=== PATIENT | male | born 1980 | race Caucasian/White ===

== ENCOUNTER → 2017-11-04 20:16 | Outpatient (CLI) | payer OTHER, SELFPAY | PROVIDERS: Family Provider Internal Medicine; PCP Internal Medicine; Visit Provider Nurse Practitioner Family | DX: G47.10 Hypersomnia, unspecified (principal); R06.83 Snoring | CPT/HCPCS: 95810 ==

== ENCOUNTER → 2017-12-09 22:45 | Outpatient (CLI) | payer OTHER, SELFPAY | PROVIDERS: Family Provider Internal Medicine; PCP Internal Medicine; Visit Provider Nurse Practitioner Family | DX: G47.33 Obstructive sleep apnea (adult) (pediatric) (principal) | CPT/HCPCS: 95811 ==

== ENCOUNTER → 2018-05-11 08:24 | Outpatient (CLI) | payer OTHER, SELFPAY ==
[2018-05-11 11:48] LABS: AST(SGOT) 32 U/L (15-37); Alanine Aminotransfer ALT/SGPT 66 U/L (16-61); Alkaline Phosphatase 72 U/L (45-117); Anion Gap 7 (5-15); BUN 10 mg/dL (7-18); BUN/Creat Ratio 11.5 RATIO (10-20); Bilirubin, Direct 0.15 mg/dL (0.00-0.30); Calcium,Total 8.6 mg/dL (8.5-10.1); Chloride 104 mmol/L (98-107); Cholesterol 179 mg/dL (200); Creatinine, Serum 0.87 mg/dL (0.70-1.30); EST Glomerular Filtration Rate 104 mL/min (>60); Est Glom Filt Rate - Afr Amer 126 mL/min (>60); Globulin 3.9 g/dL (2.2-4.2); Glucose 77 mg/dL (74-106); High Density Lipoprotein 38 mg/dL; Potassium 4.1 mmol/L (3.5-5.1); Protein, Total 7.9 g/dL (6.4-8.2); Sodium Level 138 mmol/L (136-145); Triglycerides 133 mg/dL; Very Low Density Lipoprotein 27 mg/dL (5-40)
[2018-05-11 14:03] LABS: Absolute Lymphocyte Count 2.06 X10^3/ul (0.83-4.51); Absolute Neutrophil Count 1.5 X10^3/uL (2.0-7.7); Basophil# 0.01 X10^3/uL; Basophil% 0.2 % (0-1); Eosinophil# 0.06 X10^3/uL; Eosinophils% 1.5 % (0-5); Hematocrit 45.1 % (40-54); Lymphocyte # 2.06 X10^3/ul (4.0); Lymphocyte % 50.9 % (19-41); Mean Corp Hgb Conc 35.5 g/gl (32-36); Mean Corpuscular Hgb 32.2 pg (27.0-32.0); Mean Corpuscular Volume 90.7 fL (80-94); Mean Platelet Vol. 11.2 fl (6.2-12.0); Monocyte% 9.9 % (0-10); Neutrophil # 1.52 X10^3/uL (2.7-7.7); Neutrophil % 37.5 % (47-70); POSITIVE COUNT NO; POSITIVE DIFFERENTIAL NO; POSITIVE MORPHOLOGY NO; Platelet Count 178 K/mm3 (150-450); RBC Distribution Width SD 42.4 fl (35.1-43.9); Red Blood Count 4.97 M/mm3 (4.6-6.2); White Blood Count 4.1 K/mm3 (4.4-11.0)
== END ==
PROVIDERS: Family Provider Internal Medicine; PCP Internal Medicine; Visit Provider Physician Assistant
DX: L70.0 Acne vulgaris (principal); L23.7 Allergic contact dermatitis due to plants, except food; Z79.899 Other long term (current) drug therapy
CPT/HCPCS: 36415; 80053; 80061; 82248; 85025

== ENCOUNTER → 2020-05-27 08:25 | Outpatient (CLI) | payer OTHER, SELFPAY ==
[2020-05-13 16:45] VITALS: BMI 28.8
[2020-05-27 09:39] LABS: Thyroid Stim Hormone (TSH) 1.78 uIU/mL (0.358-3.74)
== END ==
PROVIDERS: PCP Internal Medicine; Referring Provider Nurse Practitioner Family; Visit Provider Nurse Practitioner Family
DX: Z00.00 Encounter for general adult medical examination without abnormal findings (principal)
CPT/HCPCS: 36415; 84443

== ENCOUNTER 2020-07-03 16:30 | Outpatient (RCR) | payer OTHER, SELFPAY ==
[2020-05-13 16:45] VITALS: BMI 28.8
--- NOTE | 2020-06-06 08:53 | HP.PTEVAL_ITS ---
Patient's Visit Information SUZANNA MCKNIGHT is a 39 year old M referred to Physical Therapy by Anurag Whittaker NP-C with a diagnosis of SPINAL STENOSIS,CERVICAL. Date of Evaluation: 06/06/20 Physical Therapist: Daniel Johnson, PT, Cert MDT, OCS - Visit Plan Frequency: 2x /Week Duration: 4 Weeks Plan: PT INTERVENTIONS CERVICAL MANUAL TRACTION TRACTION /MOBILIZATION UPPER SPINE,CERVOCAL /POSTURAL STRENGTHNEING,MARCO EX'S,AND MODALTIES NEEDED - Subjective This 39 y/o male presents to physical therapy with cervical spinal stenosis. Patient has had cervical pain since 2014 and radicular symptoms. Patient had PT in past showed stenosis ,disc issues. Patient had h/o seeing spine surgery 2014. Patient most recently noticed more pain walking around by 2:00pm and sitting extended. There was on incidant hiking on tough terrain noticed syptoms worse. Patient located cervical base of occiputal spine and radiates to left arm. MACHADO located base of occiptal. Denies parathesia/tingling. Denies nausea/tinntus. Patient sleeping okay at night. Aggraveting factors extended physical activity ,walking,sitting.. graddually worse. Symptoms beter with laying supine and laying down,cervical retraction. Symptoms affects ADL's and houswork tasks. Pa tient affects QOL. Worse / lucia MACHADO.Patient was provided with muscle realaxer. SOCIAL: . 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 PALAPTION: tender occiput right [place]. NEURO: intact ,denies parathesia/tingling reflexes L3-4,L4-5,L5-S1 2/3. AROM: BUE WFL. CERVICAL AROM: flexion WFL,extension WFL,extension min loss,rotations min loss. MMT: BUE 4/5. 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 UPPER CERVICAL SPINE: MOD TIGHT - Special Tests C/S Radiculapathy - Left Upper limb tension test: Negative C/S Radiculapathy - Right Upper limb tension test: Negative C/S Radiculapathy - Left Spurlings: Negative C/S Radiculapathy - Right Spurlings: Negative C/S Radiculapathy - Left Cervical distraction: Negative C/S Radiculapathy - Right Cervical distraction: Negative Cervical Sitting: Protrusion - Mechanical Response: No effect Cervical Sitting: Protrusion - Symptoms During Testing: No effect Cervical Sitting: Protrusion - Symptoms After Testing: No effect Cervical Sitting: Retraction - Mechanical Response: No effect Cervical Sitting: Retraction - Symptoms During Testing: No effect Cervical Sitting: Retraction - Symptoms After Testing: No effect Cervical Sitting: Retraction-Extension - Mechanical Response: No effect Cerv Sitting: Retraction-Extension - Symptoms During Testing: No effect Cerv Sitting: Retraction-Extension - Symptoms After Testing: No effect - Goals Goal 1:: I with HEP Goal Time Frame: 4-6 Weeks Goal 2:: Improve posture for ADL'S/JOB DEMNANDS Goal Time Frame: 4-6 Weeks Goal 3:: Patient decrease cervical pain and MACHADO and radicular symptoms by 60% or > to improve functin with job demnads Goal Time Frame: 4-6 Weeks Goal 4:: Patient improve neck owestry score by 5 points or > to improve QOL. Goal Time Frame: 4-6 Weeks Goal 5:: Patient to improve cervical ROM upper cervical spine for function of recovery. Goal Time Frame: 4-6 Weeks - Rehabilitation Potential Physical Therapy Diagnosis: This patient has cervical pain with right occiputal dysfunction and derrangement above elbow with h/o spinal stenosis and disc issue with MACHADO and pain worse with job sitting and standing extended thus benifit from skilled PT. Rehabilitation Potential: Good - Anticipated Interventions Patient/Client Instruction: Educate patient on: Condition, Plan of Care For the Purpose of:: To decrease pain, To increase ROM, To improve muscle performance and motor function, To improve ability to perform ADL's, To increase tolerance to activity/condition/position, To improve ability of physical actions for home/community/work/leisure, To improve gait and locomotor functions, To decrease soft tissue restriction, To increase flexibility/ROM, To improve ability to perform tasks related to life management Therapeutic Exercise to Include: Strength training, Postural training, Flexibilty training, Active ROM, Marco Exercises For the Purpose of:: To decrease pain, To decrease swelling/inflammation, To imp rove muscle performance and motor function, To improve ability to perform ADL's, To increase tolerance to activity/condition/position, To improve performance and independence with ADL's, To improve ability of physical actions for home/community/work/leisure, To improve health of tissue, To decrease soft tissue restriction, To increase flexibility/ROM, To improve ability to perform tasks related to life management Manual Therapy Techniques to Include: Mobilization Comment: CERVICAL TRACTION,UPPER C-SPINE For the Purpose of:: To decrease pain, To increase ROM, To improve muscle performance and motor function, To improve ability to perform ADL's, To increase tolerance to activity/condition/position, To improve ability of physical actions for home/community/work/leisure, To improve health of tissue, To decrease soft tissue restriction, To increase flexibility/ROM, To improve ability to perform tasks related to life management TENS: Yes IF ES: Yes Cryotherapy (ice pack, ice massage): Yes Thermo therapy (hot pack): Yes Ultrasound (thermal/non thermal): Yes For the Purpose of:: To decrease pain, To increase ROM, To improve health of tissue, To decrease soft tissue restriction Thank you for the opportunity to evaluate your patient. For Medicare and Medicare HMO plans, please review the plan of care and approve it. It will need to be FAXED BACK to us at [phone] for Medicare purposes. For Medicare only, by signing this I certify the plan of care. Please let me know if there are questions or concerns regarding this plan of c are. Physician Signature: Date:
--- NOTE | 2020-10-01 13:08 | HP.PT.NRP ---
SUZANNA MCKNIGHT was seen in my office for initial evaluation on 06/06/20. The following Plan of Care was established for this patient: Initial Frequency: 2x /Week Initial Duration: 4 Weeks Patient/Client Instruction: Educate patient on: Condition, Plan of Care For the Purpose of:: To decrease pain, To increase ROM, To improve muscle performance and motor function, To improve ability to perform ADL's, To increase tolerance to activity/condition/position, To improve ability of physical actions for home/community/work/leisure, To improve gait and locomotor functions, To decrease soft tissue restriction, To increase flexibility/ROM, To improve ability to perform tasks related to life management Therapeutic Exercise to Include: Strength training, Postural training, Flexibilty training, Active ROM, Kareem Exercises For the Purpose of:: To decrease pain, To decrease swelling/inflammation, To improve muscle performance and motor function, To improve ability to perform ADL's, To increase tolerance to activity/condition/position, To improve performance and independence with ADL's, To improve ability of physical actions for home/community/work/leisure, To improve health of tissue, To decrease soft tissue restriction, To increase flexibility/ROM, To improve ability to perform tasks related to life management Manual Therapy Techniques to Include: Mobilization Comment: CERVICAL TRACTION,UPPER C-SPINE For the Purpose of:: To decrease pain, To increase ROM, To improve muscle performance and motor function, To improve ability to perform ADL's, To increase tolerance to activity/condition/position, To improve ability of physical actions for home/community/work/leisure, To improve health of tissue, To decrease soft tissue restriction, To increase flexibility/ROM, To improve ability to perform tasks related to life management TENS: Yes IF ES: Yes Cryotherapy (ice pack, ice massage): Yes Thermo therapy (hot pack): Yes Ultrasound (thermal/non thermal): Yes For the Purpose of:: To decrease pain, To increase ROM, To improve health of tissue, To decrease soft tissue restriction This patient was last seen in our office . Pertinent comments regarding their Physical therapy will appear below: Patient seen for PT for cervical pain and MACHADO focusing on US and cervical/postural ex's. At this point I will be discontinuing this patient from physical therapy. I would be happy to see this patient again in the future if found appropriate by the physician. Thank you! Daniel Johnson, PT, Cert MDT, OCS
== END 2020-07-03 19:00 | disposition home or self-care (01) ==
LOC: PT 16:30
PROVIDERS: PCP Internal Medicine; Visit Provider Nurse Practitioner Family
DX: M48.02 Spinal stenosis, cervical region (principal)
CPT/HCPCS: 97035; 97110; 97140; 97162

== ENCOUNTER → 2021-07-06 07:55 | Outpatient (CLI) | payer OTHER, SELFPAY ==
[2021-07-06 08:52] LABS: PSA,Total - Annual Screen 0.79 ng/mL (0.00-4.00); Thyroid Stim Hormone (TSH) 1.17 uIU/mL (0.358-3.74)
== END ==
PROVIDERS: PCP Internal Medicine; Referring Provider Nurse Practitioner Family; Visit Provider Nurse Practitioner Family
DX: Z12.5 Encounter for screening for malignant neoplasm of prostate (principal); I10 Essential (primary) hypertension
CPT/HCPCS: 36415; 84153; 84443; G0103

== ENCOUNTER → 2021-08-28 13:36 | Outpatient (CLI) | payer OTHER, SELFPAY ==
[2021-08-28 15:07] LABS: Absolute Neutrophil Count 3.9 X10^3/uL (2.0-7.7); Basophil# 0.02 X10^3/uL; Basophil% 0.4 % (0-1); Eosinophil# 0.01 X10^3/uL; Eosinophils% 0.2 % (0-5); Hematocrit 43.7 % (40-54); Hemoglobin 15.9 g/dL (13.0-16.5); Lymphocyte % 20.9 % (19-41); Mean Corp Hgb Conc 36.4 g/dL (32-36); Mean Corpuscular Hgb 32.1 pg (27.0-32.0); Mean Corpuscular Volume 88.3 fL (80-94); Mean Platelet Vol. 10.8 fl (6.2-12.0); Monocyte# 0.22 X10^3/uL; Monocyte% 4.2 % (0-10); NRBC Flagged by Analyzer 0 % (0-5); Neutrophil # 3.91 X10^3/uL (2.7-7.7); Neutrophil % 74.1 % (47-70); Platelet Count 191 K/mm3 (150-450); RBC Distribution Width CV 12.2 % (11.6-14.6); RBC Distribution Width SD 39.5 fl (35.1-43.9); Red Blood Count 4.95 M/mm3 (4.6-6.2); White Blood Count 5.3 K/mm3 (4.4-11.0)
[2021-08-28 15:21] LABS: ALB/GLOB Ratio 1.2 RATIO (0.9-2.4); AST(SGOT) 18 U/L (15-37); Alanine Aminotransfer ALT/SGPT 41 U/L (16-61); Albumin, Serum 4.3 g/dL (3.2-5.0); Alkaline Phosphatase 75 U/L (45-117); Anion Gap 6 (5-15); BUN 8 mg/dL (7-18); BUN/Creat Ratio 8.8 RATIO (10-20); Calcium,Total 9.3 mg/dL (8.5-10.1); Chloride 104 mmol/L (98-107); EST Glomerular Filtration Rate 98 mL/min (>60); Est Glom Filt Rate - Afr Amer 118 mL/min (>60); Globulin 3.7 g/dL (2.2-4.2); Glucose 123 mg/dL (74-106); Sodium Level 138 mmol/L (136-145)
[2021-08-28 17:44] LABS: Protein, Urine (Random) 13.5 mg/dL (<11.9); Protein:Creat Ratio 66 mg/g CRE (0-200)
== END ==
PROVIDERS: PCP Internal Medicine; Referring Provider Physician Assistant; Visit Provider Physician Assistant
DX: I10 Essential (primary) hypertension (principal)
CPT/HCPCS: 36415; 80053; 82570; 84156; 85025

== ENCOUNTER → 2021-09-02 13:34 | Outpatient (CLI) | payer OTHER, SELFPAY ==
--- NOTE | 2021-09-02 13:36 | ECHOD_ITS ---
Reason For Study: HTN Procedure This was a 2D Doppler, Color Flow transthoracic echocardiogram. The exam was of adequate technical quality. Exam performed in department. Left Ventricle Normal LV size. Apical false tendon noted. Left ventricular systolic function is normal. The estimated ejection fraction is 55 %. No evidence for diastolic dysfunction. No regional wall motion abnormalities noted. Right Ventricle Normal RV size. Normal systolic function. Atria Normal left atrium. Normal right atrium. No doppler evidence for ASD. Mitral Valve There is no mitral annular calcification. Normal mitral valve. Trivial mitral valve insufficiency. Tricuspid Valve Normal tricuspid valve. Mild tricuspid valve insufficiency. Right ventricular systolic pressure estimated to be 21 mmHg. Aortic Valve Trisinus/trileaflet aortic valve. Normal aortic valve. Pulmonic Valve The pulmonic valve is not well visualized. Trivial pulmonic valve insufficiency. Great Vessels The aortic root is not well visualized. Pericardium/Pleural No pericardial effusion. MMode/2D Measurements & Calculations LVIDd: 4.5 cm IVSd: 1.2 cm LA dimension: 3.6 cm LVIDs: 2.5 cm LVPWd: 1.1 cm RVDd: 4.2 cm FS: 44.0 % LAV(MOD-bp): 42.4 ml LA A4 area: 16.7 cm2 RA A4 area: 20.9 cm2 LAV(MOD-bp) Indexed: 20.7 ml/m2 LAV(MOD-sp2): 41.2 ml LAV(MOD-sp4): 43.3 ml Time Measurements MV dec time: 0.22 sec Doppler Measurements & Calculations MV E max joseph: 88.3 cm/sec Lat Peak E' Joseph: 15.8 cm/sec Med Peak E' Joseph: 10.6 cm/sec MV A max joseph: 57.4 cm/sec E/E' lat: 5.6 E/E' med: 8.3 MV E/A: 1.5 MV V2 max: 106.6 cm/sec MV P1/2t max joseph: 106.6 cm/sec Ao V2 max: 116.9 cm/sec MV max P.5 mmHg MV P1/2t: 73.5 msec Ao max P.5 mmHg MV V2 mean: 51.4 cm/sec MV dec slope: 424.5 cm/sec2 MV mean P.3 mmHg MVA(P1/2t): 3.0 cm2 MV V2 VTI: 26.6 cm LV V1 max: 104.6 cm/sec PA V2 max: 85.7 cm/sec TR max joseph: 209.2 cm/sec LV V1 max P.4 mmHg TR max P.5 mmHg ECHO/Echo Complete Interpretation Summary Left ventricular systolic function is normal. The estimated ejection fraction is 55 %. Apical false tendon noted. Trivial mitral valve insufficiency. Mild tricuspid valve insufficiency. Trivial pulmonic valve insufficiency. Right ventricular systolic pressure estimated to be 21 mmHg. No evidence for diastolic dysfunction. Ordering Physician: Rhonda Ayala Referring Physician: Rhonda Ayala Performed By: Logan Erazo RCS
== END ==
PROVIDERS: PCP Internal Medicine; Referring Provider Physician Assistant; Visit Provider Physician Assistant
DX: I10 Essential (primary) hypertension (principal)
CPT/HCPCS: 93306

== ENCOUNTER 2021-10-13 06:15 | Outpatient (CLI) | payer OTHER, SELFPAY ==
--- NOTE | 2021-10-13 08:12 | STRESSREP_ITS ---
Stress Test Report Date: 10-13-2021 Procedure: Exercise tolerance test/imaging study Indications: Chest pain Consent: Per the patient Procedure: The patient exercised on a Pedro Luis protocol for 10 minutes completing Stage III and 1 minute of Stage IV achieving a peak heart rate of 166 bpm (93% predicted maximal heart rate) with a peak blood pressure 162/70 mmHg and a peak MET capacity of 13 METs. The baseline ECG demonstrated normal sinus rhythm. The peak exercise ECG demonstrated somatic/motion artifact with no obvious ECG changes. There was a rare PVC during exercise. The functional capacity was considered good. There was no complaint of chest discomfort during exercise or recovery. The examination was discontinued secondary to leg. Impression: 1. Technically adequate (percent predicted maximal heart rate greater than 85%) exercise tolerance test 2. Peak exercise ECG with somatic/motion artifact with no obvious ECG changes 3. There was a rare PVC during exercise 4. Nuclear images pending Myocardial perfusion imaging study: Technique: The patient was injected with 11.9 mCi of technetium 99m Cardiolite and subsequently rest SPECT Cardiolite nuclear imaging was obtained in the horizontal long, vertical long, and short axis views. The patient exercised on a Pedro Luis protocol for 10 minutes completing Stage III and 1 minute of Stage IV achieving a peak heart rate of 166 bpm (93% predicted maximal heart rate) with a peak blood pressure 162/70 mmHg and a peak MET capacity of 13 METs. The patient was injected with 34.2 mCi of technetium 99m Cardiolite and subsequently stress SPECT Cardiolite nuclear imaging was obtained in the horizontal long, vertical long, and short axis views. A gated Cardiolite study at peak stress was obtained. Interpretation: Rest and stress SPECT Cardiolite nuclear imaging status post realignment, normalization, and attenuation correction, demonstrates relative uniform tracer uptake and myocardial perfusion appearing within normal limits. There is end systolic thickening and brightening. The gated Cardiolite study demonstrates myocardial thickening and inward wall motion. The reported LVEF is 67%. Impression: 1. Rest and stress SPECT Cardiolite nuclear imaging demonstrate relative uniform tracer uptake and myocardial perfusion appearing within normal limits. 2. The gated Cardiolite study reports an LVEF of 67%. This note was generated with [employer] software. It may contain incorrect words, spelling, and punctuation that were not noted in checking the note before signing.
== END 2021-10-13 23:59 | disposition short-term general hospital (02) ==
LOC: CVS 06:16
PROVIDERS: PCP Internal Medicine; Referring Provider Nurse Practitioner Family; Visit Provider Nurse Practitioner Family
DX: R07.9 Chest pain, unspecified (principal)
CPT/HCPCS: 78452; 93017; A9500; A4216

== ENCOUNTER 2022-02-25 09:18 | Emergency (ER) | payer OTHER, SELFPAY ==
[2022-02-25 09:19] VITALS: BP 148/97; PULSE 84; RESP 14; TEMP 36.4; O2SAT 98; BMI 26.6
--- NOTE | 2022-02-25 09:30 | CT_ITS ---
STUDY: CT ABDOMEN AND PELVIS WITHOUT CONTRAST REASON FOR EXAM: Male, 41 years old. Right lower quadrant pain. RADIATION DOSAGE (If Supplied By Facility): CTDIvol = ( 8.45 ) mGy, DLP = ( 430.88 ) mGycm TECHNIQUE: Transaxial images were obtained from the dome of the diaphragm to the symphysis pubis without oral contrast, and without intravenous contrast. Sagittal and coronal images were reconstructed. Individualized dose optimization techniques were used for this CT. COMPARISON: None. FINDINGS: The visualized lung bases are unremarkable. The visualized portions of the heart are within normal limits. Normal liver. Normal gallbladder and extrahepatic biliary system. Borderline splenomegaly. Normal pancreas. Normal bilateral adrenal glands. Mild degree of right hydronephrosis and right hydroureter. There is a 1.5 mm calculus at the base of the bladder on the left side suggestive of a recently passed right ureteral calculus. Normal left kidney. There is a small hiatal hernia. Normal small intestine. Moderate amount of fecal material is seen in the colon. The appendix is visualized and appears normal. Normal abdominal aorta. Normal inferior vena cava. There is borderline retroperitoneal lymphadenopathy with enlarged nodes no greater than 10mm in the short axis diameter. Normal urinary bladder. Normal abdominal wall. Normal osseous structures. CT/Abdomen/Pelvis without Cont IMPRESSION: Findings suggestive of recent passage of a 1.5 mm calculus from the right ureter with resultant mild degree of right hydronephrosis and right hydroureter. Electronically Signed: Forest South MD at 10:26 EDT ,
--- NOTE | 2022-02-25 09:36 | EX.ED.DYSGE1 ---
HPI History of Present Illness Chief Complaint: Abd Pain Informant: patient Narrative Narrative: Patient started with pain toward the right lower quadrant right side about 45 minutes ago. He states it started pretty suddenly. When he stands up it sharp but when he lays down its more aching. It started with a sensation that he had to urinate. He went to urinate but did not have to but then the pain started. No blood in the urine. No fevers chills. When the pain was bad he was nauseated but no longer. The pain is still there but it is less. He has never had kidney stone. He felt perfectly fine before this started. Nothing specifically makes it better or worse. PFSH PFSH Medical History Back pain Chest pain Difficulty balancing Encounter for preventative adult health care examination Herniated disc Hypertension Seasonal allergies Home Medications montelukast 10 mg tablet 10 mg PO QPM #90 tab 05/29/21 [Rx Last Taken Unknown] naproxen 500 mg PO BID #14 tab 02/25/22 [Rx Last Taken Unknown] ondansetron 4 mg PO Q8H PRN #10 tab 02/25/22 [Rx Last Taken Unknown] oxycodone-acetaminophen [Percocet] 1 tab PO Q6H PRN 3 Days #10 tab 02/25/22 [Rx Last Taken Unknown] Allergy/AdvReac Type Severity Reaction Status Date / Time No Known Allergies Allergy Verified 02/25/22 09:20 Family History Mother Breast cancer Father Cancer prostate Grandfather Colon cancer Surgical History H/O wisdom tooth extraction Social History Smoking Status: Never smoker how long ago did patient quit smokin alcohol intake: current alcohol intake frequency: a few times a week Alcohol type: beer substance use type: does not use what type of physical activity do you participate in: none ROS ROS ED Constitutional Constitutional ED: Denies chills or fever(s) ENT ENT ED: Denies rhinorrhea Cardiovascular Cardiovascular: Denies chest pain or palpitations Respiratory/Chest Respiratory/Chest: Denies cough or dyspnea Gastrointestinal Gastrointestinal: Reports abdominal pain; Denies nausea Genitourinary Genitourinary ED: Reports other Details: See history of present illness. ; Denies hematuria Musculoskeletal Musculoskeletal: Denies back pain or myalgias Integumentary Denies rash Psychiatric Psychiatric: Denies depression Endocrine Endocrinology: Denies polydipsia or polyuria Allergic/Immunologic Allergic/Immunologic ED: Denies urticaria EXAM Physical Exam Const Vital Signs: 02/25/22 09:19 Temperature 97.5 F L Temperature Source Temporal Pulse Rate 84 Respiratory Rate 14 Blood Pressure 148/97 H Blood Pressure Mean 114 Pulse Ox 98 Oxygen Delivery Method Room Air Positive well nourished and well developed General Appearance ED: well developed and NAD; Negative for cyanotic HEENT Reports moist mucous membranes Eyes General Eye ED: Negative for pale conjunctiva Neck No no JVD Resp normal respiratory effort Cardio regular rate GI normal to inspection, nondistended, normoactive bowel sounds; Negative for non-tender Palpation: soft Back/Spine no CVA tenderness Extremity normal to inspection Neuro oriented x3 Sensorium / Orientation: alert Psych mental status grossly normal Skin no rashes or lesions noted MDM MDM MDM Narrative Medical decision making narrative: Patient's CBC is normal. Electrolytes are unremarkable. Urine shows a few red cells but no white cells. CT is consistent with a stone that just passed. Patient's pain is better. He is feeling some come back off and on. I expect him to still have some discomfort from this. I will write him for nonsteroidals pain meds and Zofran. I will not use Flomax as it appears as the stone has passed and is quite small. Lab Data Attestation: I reviewed the patient's lab results. Labs: Laboratory Results - last 24 hr 02/25/22 02/25/22 02/25/22 09:33 09:33 10:55 WBC 5.0 RBC 5.09 Hgb 16.4 Hct 45.1 MCV 88.6 MCH 32.2 H MCHC 36.4 H RDW Std Deviation 39.4 RDW Coeff of [place] 12.1 Plt Count 185 MPV 10.4 Immature Gran % (Auto) 0.200 Neut % (Auto) 50.0 Lymph % (Auto) 39.4 [place] % (Auto) 8.6 Eos % (Auto) 1.4 Baso % (Auto) 0.4 Absolute Neuts (auto) 2.5 Absolute Lymphs (auto) 1.98 Nucleated RBC % 0 Sodium 138 Potassium 3.7 Chloride 105 Carbon Dioxide 27.0 Anion Gap 6 BUN 13 Creatinine 1.04 Estim Creat Clear Calc 95.54 Est GFR (MDRD) Af Amer 100 Est GFR (MDRD) Non-Af 83 BUN/Creatinine Ratio 12.5 Glucose 109 H Calcium 8.8 Urine Color Yellow Urine Clarity Sl. Cloudy Urine pH 6.0 Ur Specific [place] 1.025 Urine Protein 15 H Urine Glucose (UA) Normal Urine Ketones 5 H Urine Occult Blood 150 H Urine Nitrite Negative Urine Bilirubin Negative Urine Urobilinogen Normal Ur Leukocyte Esterase Negative Urine RBC 0-5 SEEN Urine WBC 0 SEEN Ur Squamous Epith Cells 0 SEEN Urine Bacteria 0 SEEN Urine Mucus 0 SEEN Radiography Diagnostic Testing: Clinical Impression(s) from Imaging Studies Abdomen/Pelvis CT 02/25/22 09:30 IMPRESSION: Findings suggestive of recent passage of a 1.5 mm calculus from the right ureter with resultant mild degree of right hydronephrosis and right hydroureter. Electronically Signed: Forest South MD at 10:26 EDT , Discharge Plan Triage Chief Complaint: Abd Pain ED Provider: Rylan Boone Dx/Rx/DC Orders Clinical Impression: Kidney stone on right side Instructions: ED Kidney Stone, Passed Prescriptions: New oxycodone-acetaminophen [Percocet] 5-325 mg tablet 1 tab PO Q6H PRN (Reason: pain) 3 Days Qty: 10 RF: 0 ondansetron 4 mg tablet,disintegrating 4 mg PO Q8H PRN (Reason: nausea and vomiting) Qty: 10 RF: 0 naproxen 500 MG tablet 500 mg PO BID Qty: 14 RF: 0 No Action montelukast [Singulair] 10 mg tablet 10 mg PO QPM Qty: 90 RF: 3 Primary Care Provider: Anurag Whittaker NP Referrals: Mychal Flanagan MD [STAFF PHYSICIAN] - 3-5 Days Anurag Whittaker NP, REMITTANCE CLERK-C [Primary Care Provider] - Disposition Disposition: Home, Self Care
[2022-02-25 09:41] LABS: Absolute Lymphocyte Count 1.98 X10^3/uL (0.83-4.51); Absolute Neutrophil Count 2.5 X10^3/uL (2.0-7.7); Basophil# 0.02 X10^3/uL; Basophil% 0.4 % (0-1); Eosinophil# 0.07 X10^3/uL; Eosinophils% 1.4 % (0-5); Hematocrit 45.1 % (40-54); Hemoglobin 16.4 g/dL (13.0-16.5); Lymphocyte # 1.98 X10^3/ul (0.83-4.51); Lymphocyte % 39.4 % (19-41); Mean Corp Hgb Conc 36.4 g/dL (32-36); Mean Corpuscular Hgb 32.2 pg (27.0-32.0); Mean Corpuscular Volume 88.6 fL (80-94); Mean Platelet Vol. 10.4 fl (6.2-12.0); Monocyte# 0.43 X10^3/uL; Monocyte% 8.6 % (0-10); NRBC Flagged by Analyzer 0 % (0-5); Neutrophil # 2.51 X10^3/uL (2.7-7.7); Platelet Count 185 K/mm3 (150-450); RBC Distribution Width CV 12.1 % (11.6-14.6); RBC Distribution Width SD 39.4 fl (35.1-43.9); Red Blood Count 5.09 M/mm3 (4.6-6.2)
[2022-02-25] MEDS: 0.9% Normal Saline 1,000 ML 1000 ML IV (09:47)
[2022-02-25] MEDS: Ondansetron 4 MG/2 ML Vial IV (09:47)
[2022-02-25] MEDS: Ketorolac 15 MG/ML Vial IV (09:47)
[2022-02-25 10:02] LABS: Anion Gap 6 (5-15); BUN 13 mg/dL (7-18); BUN/Creat Ratio 12.5 RATIO (10-20); Calcium,Total 8.8 mg/dL (8.5-10.1); Chloride 105 mmol/L (98-107); Creatinine, Serum 1.04 mg/dL (0.70-1.30); EST Glomerular Filtration Rate 83 mL/min (>60); Est Glom Filt Rate - Afr Amer 100 mL/min (>60); Estimated Creatinine Clearance 95.54 ml/min; Glucose 109 mg/dL (74-106); Potassium 3.7 mmol/L (3.5-5.1); Sodium Level 138 mmol/L (136-145)
[2022-02-25 10:59] LABS: Bacteria 0 SEEN /hpf (None Seen); Mucous, Urine 0 SEEN /hpf (<or=2+); Squamous Epithelial Cells - UA 0 SEEN /hpf (0-5); White Blood Cells 0 SEEN /hpf (0-5)
[2022-02-25 11:09] LABS: Color, Urine Yellow (Yellow); Glucose, Dipstick Normal (Normal); Ketone-Dipstick 5 mg/dl (Negative); Leukocyte Esterase-Dipstick Negative /ul (Negative); Nitrite-Dipstick Negative (Negative); Occult Blood-Urine 150 /ul (Negative); Protein-Dipstick 15 mg/dl (Negative); Specific Gravity, Urine 1.025 (1.002-1.030); Urine Bilirubin Dipstick Negative (Negative); Urine Clarity Sl. Cloudy (Clear); Urine Urobilinogen Normal (Normal)
[2022-02-25 11:32] LABS: Red Blood Cells-Urine 0-5 SEEN /hpf (0-5)
[2022-02-25 12:00] VITALS: BP 124/78; PULSE 78; RESP 14; O2SAT 98
[2022-02-25 12:33] VITALS: BP 148/80; PULSE 84; RESP 16; TEMP 36.6; O2SAT 100
== END 2022-02-25 12:36 | disposition home or self-care (01) ==
PROVIDERS: Emergency Provider Emergency Medicine; PCP Nurse Practitioner Family; Visit Provider Emergency Medicine
DX: N20.0 Calculus of kidney (principal)
CPT/HCPCS: 74176; 80048; 81001; 85025; 96361; 96374; 96375; 99283; J7030; A4216; J2405

== ENCOUNTER → 2022-03-08 | Outpatient (CLI) | payer OTHER, SELFPAY ==
[2022-03-08 12:29] LABS: Bacteria 0 SEEN /hpf (None Seen); Mucous, Urine 0 SEEN /hpf (<or=2+); Red Blood Cells-Urine 0 SEEN /hpf (0-5); Squamous Epithelial Cells - UA 0 SEEN /hpf (0-5); White Blood Cells 0 SEEN /hpf (0-5)
[2022-03-08 13:53] LABS: Color, Urine Yellow (Yellow); Glucose, Dipstick Normal (Normal); Ketone-Dipstick Negative (Negative); Leukocyte Esterase-Dipstick Negative /ul (Negative); Nitrite-Dipstick Negative (Negative); Occult Blood-Urine Negative /ul (Negative); Protein-Dipstick Negative (Negative); Specific Gravity, Urine 1.015 (1.002-1.030); Urine Bilirubin Dipstick Negative (Negative); Urine Clarity Clear (Clear); Urine Urobilinogen Normal (Normal); Urine pH 6.5 (5.0 - 8.0)
== END | disposition home or self-care (01) ==
PROVIDERS: PCP Nurse Practitioner Family; Referring Provider Nurse Practitioner Family; Visit Provider Nurse Practitioner Family
DX: R10.9 Unspecified abdominal pain (principal)
CPT/HCPCS: 81001; 87086

== ENCOUNTER → 2023-10-21 | Outpatient (CLI) | payer OTHER, SELFPAY ==
--- OUTSIDE RECORDS SUMMARY | 2023-10-21 07:36 | XMS RPT_ITS | CCD ---
Author Name Unknown Address [address] [place] [address] Organization [facility] Care Team Providers Care [employer] Name Role Phone Ricardo Hall Unavailable Unavailable Unknown, Referring Provider Unavailable Unav ailable Medications Completed/Discontinued Medications Medication Drug Class(es) Dates Sig (Normalized) Sig (Original) azithromycin 250 mg oral tablet (1 source) Macrolide Antimicrobial Start: 06-24-2019 take 2 tablets by mouth once daily, then take 1 tablet by mouth, then take 1 tablet by mouth once daily Azithromycin 250 MG Oral Tablet TAKE 2 TABLETS ON DAY 1 THEN TAKE 1 TABLET A DAY FOR 4 DAYS. Quantity: 1 Refills: 0 Ricardo Hall MD Start : 24-Jun-2019 Active 6 Tablet Pack Lisinopril TABS (1 source) Angiotensin Converting Enzyme Inhibitor Lisinopril TABS Refills: 0 Active Montelukast Sodium TABS (1 source) Leukotriene Receptor Antagonist Montelukast Sodium TABS Refills: 0 Active predniSONE 10 mg oral tablet (1 source) Start: 06-24-2019 take 4 tablets by mouth once daily, then take 1 tablet by mouth once daily, then take 3 tablets by mouth once daily, then take 5 tablets by mouth once daily, then take 7 tablets by mouth predniSONE 10 MG Oral Tablet 4 tabs day number 1 and 2, then 3 tabs day number 3 and 4, then 2 tabs day number 5 and 6, then 1 tab day number 7 and 8 Quantity: 20 Refills: 0 Ricardo Hall MD Start : 24-Jun-2019 Active Problems Problem Classification Problem Date Documented Da te Episodic/Chronic Allergic reactions (1 source) Contact dermatitis; Translations: [Contact dermatitis] Episodic Results Test Name Value Interpretation Reference Range Facil ity Vital Signs Date Time Vital Sign Value Performing Clinician Faci lity 06-24-2019 15:20-0400 BMI (Body Mass Index) 28.06 kg/m2 Ricardo Hall [facility] Work Phone: 06-24-2019 15:20-0400 Body Temperature 98.4 [degF] Ricardo Hall [facility] Work Phone: 06-24-2019 15:20-0400 Body weight 86.18 kg Ricardo Hall [facility] Work Phone: 06-24-2019 15:20-0400 BP Diastolic 95 mm[Hg] Ricardo Hall [facility] Work Phone: 06-24-2019 15:20-0400 BP Systolic 142 mm[Hg] Ricardo Hall [facility] Work Phone: 06-24-2019 15:20-0400 BSA (Body Surface Area) 2.02 m2 Ricardo Hall [facility] Work Phone: 06-24-2019 15:20-0400 Height 175.26 cm Ricardo Hall [facility] Work Phone: 06-24-2019 15:20-0400 Pulse (Heart Rate) 85 /min Ricardo Hall [facility] Work Phone: 06-24-2019 15:20-0400 Pulse Oximetry 96 % Ricardo Hall [facility] Work Phone: 06-24-2019 15:20-0400 Respiratory Rate 16 /min Ricardo Hall [facility] Work Phone: Procedures Date Procedure Procedure Detail Performing Clinician Start: 06-24-2019 Follow-up visit Social History Date Type Detail Facility NEGATED: Highlighted row - - [facility] Work Phone: Functional Status Date Assessment Result Facility NEGATED: Highlighted row Functional performance Functional status health issues are not documented Disease [facility] Work Phone: Mental Status Date Assessment Result Facility NEGATED: Highlighted row Cognitive function [Interpretation] Cognitive status health issues are not documented Disease [facility] Work Phone: Progress note 03-28-2021 Note Date & Type Note Facility 03-28-2021 Note HNO ID: [id number] Author: Mike Zaidi MD Service: ? Author Type: Physician Type: Progress Notes Filed: 03/28/2021 9:49 AM Note Text: Patient presents with: Derm Problem: raised red area on left side of neck x 3 months, increased x 1 week HPI: Skin Lesion: Location: Left neck below the jaw Duration: 3 months Pruritis/Pain: Itchy, tender to push on Change: Bigger and more irritated the last week Drainage/blister/pustule/ulceration: NO Treatment: Warm compress PAST MEDICAL HISTORY Diagnosis Date - Back pain - Essential hypertension MEDICATIONS: lisinopril (ZESTRIL, PRINIVIL) 5 mg tablet Take 5 mg by mouth once daily. ALLERGIES: ALLERGIES No Known Allergies VITALS: BP 146/88 Pulse 76 Temp 36.1 ?C (97 ?F) Resp 16 Wt 90.3 kg (199 lb) SpO2 98% BMI 28.55 kg/m? PHYSICAL EXAM: GEN: pleasant, no acute distress, alert HEENT: PERRL, EOMI, MMM NECK: supple, no lymphadenopathy, no thyromegaly 2cm raised red area left neck above the carotid bifurcation. Soft 0.5-1cm probably fluid filled center surrounded by subcutaneous induration. The lesion moves with the dermis. HEART: regular rate, regular rhythm, no murmurs LUNGS: clear to auscultation, no wheezes or crackles, no increased WOB EXT: no clubbing, no cyanosis, no edema ASSESSMENT/PLAN: 1. Dermoid cyst of neck - ICD9: 229.8, ICD10: D36.7 Probable inflamed skin cyst. The lesion is in line with branchial clefts so no IANDD performed today. - DOXYCYCLINE MONOHYDRATE 100 MG CAPSULE - CONSULT TO DERMATOLOGY Mike Zaidi MD [facility] Summary Purpose Family History No Family History Records FoundNo Family History Records Found Advance Directives No Advanced Directives Records FoundNo Advanced Directives Records Found Additional Source Comments (unrecognized sect ion and content) No Status Records FoundNo Status Records Found INFORMATION SOURCE (unrecogn ized section and content) DATE CREATED AUTHOR AUTHOR'S ORGANIZ ATION 11/06/2021 [facility] FOR RECORDS PERTAINING TO PATIENTS WHO ARE OR HAVE BEEN ENROLLED IN A CHEMICAL DEPENDENCY/SUBSTANCEABUSE PROGRAM, SOME INFORMATION MAY BE OMITTED. This clinical summary was aggregated from multiple sources. Caution should be exercised in using it in the provision of clinical care. This summary normalizes information from multiple sources, and as a consequence, information in this document may materially change the coding, format and clinical context of patient data. In addition, data may be omitted in some cases. CLINICAL DECISIONS SHOULD BE BASED ON THE PRIMARY CLINICAL RECORDS. [facility] [employer] [facility] provides no warranty or guarantee of the accuracy or completeness of information in this document.
[2023-10-21 08:20] LABS: Absolute Lymphocyte Count 1.29 X10^3/uL (0.83-4.51); Absolute Neutrophil Count 1.6 X10^3/uL (2.0-7.7); Basophil# 0.03 X10^3/uL; Basophil% 0.9 % (0-1); Eosinophil# 0.06 X10^3/uL; Eosinophils% 1.8 % (0-5); Hematocrit 45.5 % (40-54); Hemoglobin 16.5 g/dL (13.0-16.5); Lymphocyte # 1.29 X10^3/ul (0.83-4.51); Mean Corp Hgb Conc 36.3 g/dL (32-36); Mean Corpuscular Hgb 32.3 pg (27.0-32.0); Mean Platelet Vol. 11.2 fl (6.2-12.0); Monocyte# 0.37 X10^3/uL; Monocyte% 11.2 % (0-10); NRBC Flagged by Analyzer 0 % (0-5); Neutrophil # 1.56 X10^3/uL (2.7-7.7); Neutrophil % 47.1 % (47-70); Platelet Count 156 K/mm3 (150-450); RBC Distribution Width CV 12.5 % (11.6-14.6); RBC Distribution Width SD 40.8 fl (35.1-43.9); Red Blood Count 5.11 M/mm3 (4.6-6.2); White Blood Count 3.3 K/mm3 (4.4-11.0)
[2023-10-21 08:59] LABS: ALB/GLOB Ratio 1.1 RATIO (0.9-2.4); AST(SGOT) 22 U/L (15-37); Alanine Aminotransfer ALT/SGPT 46 U/L (16-61); Alkaline Phosphatase 80 U/L (45-117); Anion Gap 2 (5-15); BUN 16 mg/dL (7-18); BUN/Creat Ratio 18.1 RATIO (10-20); Chloride 108 mmol/L (98-107); Cholesterol 135 mg/dL (200); Creatinine, Serum 0.88 mg/dL (0.70-1.30); EST Glomerular Filtration Rate 100 mL/min (>60); Est Glom Filt Rate - Afr Amer 120 mL/min (>60); Globulin 3.5 g/dL (2.2-4.2); Glucose 96 mg/dL (74-106); High Density Lipoprotein 44 mg/dL; Potassium 4.2 mmol/L (3.5-5.1); Protein, Total 7.5 g/dL (6.4-8.2); Sodium Level 138 mmol/L (136-145); Thyroid Stim Hormone (TSH) 1.65 uIU/mL (0.358-3.74); Triglycerides 72 mg/dL; Very Low Density Lipoprotein 14 mg/dL (5-40)
[2023-10-21 09:31] LABS: HIV - WCH Non-Reactive (Nonreactive); Hepatitis C Antibody Non-Reactive (Nonreactive)
== END | disposition home or self-care (01) ==
LOC: LAB 07:31
PROVIDERS: PCP Family Medicine; Referring Provider Family Medicine; Visit Provider Family Medicine
DX: Z00.00 Encounter for general adult medical examination without abnormal findings (principal); Z13.1 Encounter for screening for diabetes mellitus; Z11.4 Encounter for screening for human immunodeficiency virus [HIV]; Z11.59 Encounter for screening for other viral diseases; Z13.220 Encounter for screening for lipoid disorders; Z80.42 Family history of malignant neoplasm of prostate
CPT/HCPCS: 36415; 80053; 80061; 84153; 84443; 85025; 86703; 86803; G0103

== ENCOUNTER 2024-08-02 07:40 | Day surgery (SDC) | payer OTHER, SELFPAY ==
[2024-08-02] VITALS (9 sets, daily range): BP systolic 100–134; BP diastolic 70–99; PULSE 58–80; RESP 16–20; TEMP 36.3–36.9; O2SAT 96–100; BMI 27.4
== END 2024-08-02 10:54 | disposition home or self-care (01) ==
LOC: EN 07:41 → AC 07:43
PROVIDERS: PCP Family Medicine; Referring Provider Family Medicine; Visit Provider Internal Medicine Gastroenterology
PROC: 0DJD8ZZ Inspection of Lower Intestinal Tract, Via Natural or Artificial Opening Endoscopic (ICD-10-PCS; CPT 45378; principal; 2024-08-02 08:55)
DX: Z12.11 Encounter for screening for malignant neoplasm of colon (principal); K57.30 Diverticulosis of large intestine without perforation or abscess without bleeding; D12.8 Benign neoplasm of rectum; Z87.891 Personal history of nicotine dependence; Z86.16 Personal history of COVID-19; Z80.0 Family history of malignant neoplasm of digestive organs
CPT/HCPCS: 45385; 88305; A4216; J2405